=== PATIENT | female | born 1990 | race Caucasian/White ===

== ENCOUNTER 2018-01-26 16:54 | Observation (INO) ==
--- NOTE | 2018-01-26 17:18 | Emergency Department Report ---
General Adult HPI - General Chief complaint: Medical Emergency Stated complaint: Fever Bleeding Headache Time Seen by Provider: 01/26/18 17:17 Source: patient Mode of arrival: ambulatory Limitations: no limitations - History of Present Illness HPI narrative: Patient is a 27-year-old female, on her about January 06 she delivered a baby at [facility]. Patient was doing well at home by report, on last Thursday patient developed bleeding, multiple spotting multiple pads. Patient was reevaluated at [facility] on Thursday, at that time patient was taken for a D&C. Patient was kept overnight discharged home on Thursday. Patient continuing to do poorly abdominal pain subjective chills, weakness. Patient by her report saw her doctor today, had a repeat CBC which was 6.1. Patient continuing to feel poorly at home, was told to continue to take oral iron. Patient continuing to feel severely weak, decided to present to [facility] for further evaluation and treatment. On arrival patient's heart rate 106 blood pressure 112/62 - Related Data Home Medications Medication Instructions Recorded Confirmed Clindamycin [Cleocin] 300 mg PO BID 01/26/18 01/26/18 Ferrous Sulfate [Ferrous Sulfate] 325 mg PO BIDWM 01/26/18 01/26/18 Hydrocodone/APAP 5/325 [[place] 1 tab PO Q4H PRN 01/26/18 01/26/18 5/325] Ibuprofen [Motrin] 800 mg PO TID PRN 01/26/18 01/26/18 Oxycodone/Acetaminophen 5/325 1 tab PO Q6H PRN 01/26/18 01/26/18 [Percocet 5/325] Allergies Allergy/AdvReac Type Severity Reaction Status Date / Time Penicillins Allergy Unknown HIVES Verified 01/26/18 17:19 Review of Systems Constitutional: Reports: chills, weakness. Denies: fever Eyes: Denies: eye pain, eye discharge ENT: Denies: throat pain, dental pain Cardiovascular: Denies: chest pain, palpitations Respiratory: Denies: cough, dyspnea, wheezes Gastrointestinal: Reports: abdominal pain. Denies: nausea, vomiting Genitourinary: Denies: dysuria, frequency Integumentary: Denies: change in hair, change in nails Neurological: Denies: headache, weakness, numbness Psychiatric: Denies: anxiety, depression Endocrine: Denies: fatigue Hematological/Lymphatic: Denies: easy bleeding Allergic/Immunologic: Denies: facial swelling PFSH Patient Stated Medical History Dental Problems Yes Post Menopausal No Now Yes: MARCO A 01-29-18 - Social History Smoking status: Current every day smoker Substance use type: does not use Alcohol intake frequency: does not drink Physical Exam - General General appearance: alert, in no apparent distress - ENT ENT exam: Present: normal oropharynx, mucous membranes moist, TM's normal bilaterally - Neck Neck exam: Present: full ROM, trachea midline. Absent: tenderness - Chest Chest inspection: Present: normal inspection, symmetric chest wall rise. Absent : tenderness, rash - Respiratory Respiratory exam: Present: normal lung sounds bilaterally. Absent: respiratory distress, wheezes, stridor - Cardiovascular Cardiovascular exam: Present: regular rate, normal rhythm, normal heart sounds - Abdominal Exam Abdominal exam: Present: soft, tenderness (tenderness to palpation suprapubically), normal bowel sounds. Absent: distention - Extremities Exam Extremities exam: Present: full ROM, normal capillary refill. Absent: tenderness - Back Exam Back exam: Present: full ROM. Absent: tenderness, CVA tenderness (R), CVA tenderness (L), muscle spasm, paraspinal tenderness - Skin Skin exam: Present: warm, dry - Neurological Exam Neurological exam: Present: alert, oriented X3 - Psychiatric Psychiatric exam: Present: normal affect, normal mood Medical Decision Making - [facility] Narrative Medical decision making narrative: Discuss case with Dr. Richards, patient has been typed and crossed for 2 units of cells, she would like to attempt IV iron 1st; she will admit patient observation status to the surgical floor - Medical Records Medical records reviewed: Yes: I reviewed the patient's medical records. - Lab Data Lab results reviewed: Yes: I reviewed the patient's lab results. Result diagrams: 01/26/18 17:33 01/26/18 17:33 Disposition Clinical Impression: bleeding Qualifiers: hemorrhage type: unspecified Qualified Code(s): O72.1 - Other immediate hemorrhage [place] [facility] [place] Stable Prescriptions: No Action Ferrous Sulfate [Ferrous Sulfate] 325 mg PO BIDWM Oxycodone/Acetaminophen 5/325 [Percocet 5/325] 1 tab PO Q6H PRN PRN Reason: Pain Clindamycin [Cleocin] 300 mg PO BID Hydrocodone/APAP 5/325 [[place] 5/325] 1 tab PO Q4H PRN PRN Reason: Pain Ibuprofen [Motrin] 800 mg PO TID PRN PRN Reason: Pain Referrals: Pallavi Norwood APRN [Primary Care Provider] - Time of Disposition: 18:19 - Seen By: physician
--- OUTSIDE RECORDS SUMMARY | 2018-01-26 17:28 | External Medical Summary ---
:1990 Author Organization eClinical[employer] Care Team Providers Name Role Phone Linda Mcdonald Provider Role Unavailable Allergies No Known Allergies Problems Problem Type Condition Code Onset Dates Condition Status Problem Generalized anxiety disorder 300.02 Active Medications Medication Code System Code Instructions Start End Date Status Dosage Date Lidocaine [facility] 73352-740 2 % Mouth/Throat May 06, May 16, 15 ml as Viscous 0-49 every 3 hrs 2015 2015 needed Results No Known Results Summary Purpose eClinicalWorks Submission
[2018-01-26] MEDS: LR 1,000 ML IV SCH ×2 (17:36→19:18)
[2018-01-26] MEDS: SALINE FLUSH 10ml SYRINGE IVF PRN ×2 (17:36→19:18)
[2018-01-26] MEDS ORDERED: HYDROCODONE/APAP 5mg/325mg TABLET PO PRN (18:57)
[2018-01-26 19:04] VITALS: BMI 25.2
[2018-01-26] MEDS: D5LR 1,000 ML IV SCH (19:18)
--- NOTE | 2018-01-26 20:09 | History and Physical ---
CHIEF COMPLAINT bleeding. HISTORY OF PRESENT ILLNESS Marcella is a 27-year-old 4, para 4 status post spontaneous vaginal delivery on 01/06/2018 of a baby with gastroschisis at [facility]. She reports that her placenta had to be manually removed an hour later. She was seen in the ER on 01/19/2018 for heavy bleeding. She was given IV fluids. She continued to have heavy bleeding and was readmitted on 01/24/2018 at [place] and had a D&C for retained products by my partner, Dr. Estrada. She reports her bleeding is much better. She was supposed to be taking Methergine p.o. but the pharmacy did not have any. She reports her bleeding is much improved but she is still feeling very weak, lightheaded, headache, and feels like she has a fever. HOME MEDICATIONS 1. Clindamycin 300 mg p.o. b.i.d. 2. Iron. . 3. [place] 5 mg. 4. Ibuprofen 800 mg. ALLERGIES Penicillin. PAST MEDICAL HISTORY Poor dentition. PAST SURGICAL HISTORY D&C on 01/24/2018. PAST OB HISTORY Four vaginal deliveries. SOCIAL HISTORY Her boyfriend and mother are present today. She smokes half a pack a day. She denies alcohol or other drug use. REVIEW OF SYSTEMS CONSTITUTIONAL: She reports weakness, headache and chills. CARDIOVASCULAR: Denies chest pain or palpitations. RESPIRATORY: Denies dyspnea or wheezing. GI: Denies nausea or vomiting. : Denies dysuria. LABORATORY White count 6.7, hemoglobin 6.1. CMP is essentially normal for being . We did a transvaginal sono. Per the interior design director's report there does not appear to be any retained tissue but only some clots in the uterus. PHYSICAL EXAM GENERAL: The patient is very pale and appears to be acutely ill. RESPIRATORY: Nonlabored. ABDOMEN: Soft, nondistended. PELVIC EXAM: There is scant bleeding in the vagina. Her cervix is closed without discharge. Her uterus is small and nontender. EXTREMITIES: Nontender. ASSESSMENT 1. Status post . 2. Status post D&C for retained products. 3. Acute blood loss anemia with orthostatic changes. PLAN Admit the patient overnight. Will start with giving her 1 unit of blood and then reassess. Risks of the blood transfusion were explained to the patient and her family including but not limited to allergic reaction and infection. They all agreed this was the best course of action. DARA
[2018-01-26] MEDS ORDERED: ONDANSETRON ODT 4 MG TABLET PO PRN (20:15)
[2018-01-26] MEDS ORDERED: NICOTINE 14 MG PATCH TD PRN (23:58)
[2018-01-27] MEDS ORDERED: NS FLUSH BAG 500ml IV PRN (01:20)
[2018-01-27] MEDS ORDERED: NICOTINE PATCH REMOVAL TD PRN (06:03)
[2018-01-27] MEDS ORDERED: ONDANSETRON ODT 4 MG TABLET SL PRN (06:15)
[2018-01-27 08:14] VITALS: RESP 16; TEMP 98; O2SAT 96
[2018-01-27] MEDS: D5LR 1,000 ML IV SCH (08:37)
[2018-01-27 10:02] VITALS: BP 114/69; PULSE 74
--- NOTE | 2018-01-27 10:50 | OB/GYN Procedure Note ---
VALIDATION SCIENTIST Postop Note Free Text - Date Date: 01/27/18 - Progress Note Progress Note: Pt would like to go outside to smoke. Feeling much better, minimal bleeding Hgb 7.8 AVSS Abd-NT/ND Improved. Will dismiss to home, follow with Dr Estrada. Reviewed precautions.
--- NOTE | 2018-01-28 08:26 | Ultrasound Report ---
Indication: evaluate for placental tissue remains PROCEDURE: US transvaginal: Encounter: Initial Comparison: None FINDINGS: Transvaginal and transabdominal pelvic imaging was performed. The uterus measures 9.9 x 6.6 x 7.6 cm. The parenchyma is homogeneous without fibroids. The endometrial stripe is thickened without evidence of internal vascular flow or discrete retained parts. This measures up to 3 cm in thickness. Both ovaries are identified and normal in appearance. The right ovary measures 2.9 x 2 x 1.8 cm. The left ovary measures 3.3 x 2.2 x 1.8 cm. There are no abnormal adnexal masses detected. Normal Doppler flow to both ovaries. No free fluid. IMPRESSION: Thickened endometrium without evidence of internal vascularity, parts or other findings to suggest retained products of conception. Findings could relate to a hematoma given the recent D&C procedure. There is a preliminary report by [facility]. .
== END 2018-01-27 11:32 | disposition home or self-care (01) ==
LOC: ED 16:54 → EDHOLD 16:54 → SRG 17:55
PROVIDERS: ADMIT Obstetrics & Gynecology; ATTEND Obstetrics & Gynecology